=== PATIENT | female | born 1965 ===

== ENCOUNTER → 2021-02-01 | Outpatient (REF) ==
--- NOTE | 2021-02-01 12:25 | REP ---
INDICATION: DDD. COMPARISON: None. TECHNIQUE: AP and lateral cervical spine. FINDINGS: There is no compression fracture. There is normal alignment with slight reversal of the normal cervical lordosis which could indicate spasm or may be positional. There is no prevertebral soft tissue swelling. There is mild spurring of C5 and C6 with mild intervening disc space narrowing and subchondral sclerosis. There is slight narrowing at C4-5. There is diffuse sclerosis at the posterior facet joints along with mild spurring. IMPRESSION: Degenerative changes as discussed above. <Electronically signed by Julian Jessica > 02/01/21 [id number]
--- NOTE | 2021-02-01 12:27 | REP ---
INDICATION: DDD. COMPARISON: None. TECHNIQUE: Three AP and lateral views lumbar spine. FINDINGS: There is a transitional lumbar vertebral body, with sacralization of L5. There is no compression fracture, with normal lumbar lordosis. Moderate spurring is noted of L3 through L5. There is moderate disc space narrowing and subchondral sclerosis at L3-4 and L4-5, with sclerosis and spurring at the posterior facet joints at those levels as well. There is mild narrowing of L5-S1. The posterior elements are intact. IMPRESSION: Transitional lumbar vertebral body, with sacralization of L5. Moderate degenerative changes lower lumbar spine. <Electronically signed by Julian Jessica > 02/01/21 [id number]
== END ==
LOC: M RAD 10:39
PROVIDERS: ATTEND Internal Medicine
DX: M25.78 Osteophyte, vertebrae (principal); M51.36 Other intervertebral disc degeneration, lumbar region; M51.37 Other intervertebral disc degeneration, lumbosacral region; M50.321 Other cervical disc degeneration at C4-C5 level